=== PATIENT | male | born 1955 | race Caucasian/White ===

== ENCOUNTER 2023-05-13 07:49 | Emergency (ER) | payer OTHER, BC ==
[~2023-05-13] VITALS: Ht 185.4 cm; Wt 110.0 kg
[~2023-05-13 07:49] MED LIST: ASPI-1009 PO; ATOR40TA PO; CLIN-97 PO; FENO145T38 PO; FLO0.4C PO; HYDR-4383 PO; LOSA-424 PO; NIAC1TBM PO
[2023-05-13] MEDS ORDERED: FENO30CA (08:15)
[2023-05-13] MEDS ORDERED: BEMP180T (08:15)
[2023-05-13] MEDS ORDERED: AMLO1ORA (08:15)
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
[2023-05-13 08:26] VITALS: BP 131/77; PULSE 75; O2SAT 96
[2023-05-13 10:56] VITALS: TEMP 98
[2023-05-13 15:04] VITALS: RESP 18
--- NOTE | 2023-05-13 19:08 | NUR ---
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
== END 2023-05-13 10:20 | disposition home or self-care (01) ==
LOC: ER 07:50
DX: S80.01XA Contusion of right knee, initial encounter (principal); S70.01XA Contusion of right hip, initial encounter; V49.9XXA Car occupant (driver) (passenger) injured in unspecified traffic accident, initial encounter; Y93.89 Activity, other specified; Y92.89 Other specified places as the place of occurrence of the external cause; Y99.8 Other external cause status
CPT/HCPCS: 73700; 99284